=== PATIENT | male | born 1960 | race Caucasian/White ===

== ENCOUNTER → 2019-10-31 12:07 | Outpatient (CLI) | payer OTHER, SELFPAY ==
--- NOTE | 2019-10-31 12:08 | DI.RAD.S_ITS ---
PROCEDURE: XR CERVICAL SPINE 4V OR 5V INDICATIONS: neck pain TECHNIQUE: 5 views of the cervical spine acquired. COMPARISON: None. FINDINGS: Bones: No fractures or dislocations to the superior endplate of T1 level. Oblique images demonstrate mild left greater than right bony neural foraminal narrowing at C6-7. Multilevel cervical spondylitic changes with disc space loss, degenerative endplate changes, and endplate osteophyte formation. Findings are most pronounced from C4-5 through C6-7. Straightening of cervical lordosis which may be due to patient positioning and/or concurrent muscle spasms. Soft tissues: No prevertebral soft tissue swelling. IMPRESSION: Cervical spine without acute radiographic abnormalities. Multilevel cervical spondylosis most pronounced from C4-5 through C6-7. Mild straightening of normal cervical lordosis likely related to positioning and/or concurrent muscle spasms. Dictated by: Kevyn Campuzano M.D. on 10/31/2019 at 16:11 Approved by: Kevyn Campuzano M.D. on 10/31/2019 at 16:13
--- NOTE | 2019-10-31 12:08 | DI.RAD.S_ITS ---
PROCEDURE: XR SHOULDER RT MIN 2V INDICATIONS: scapular pain TECHNIQUE: 3 views of the shoulder were acquired. COMPARISON: None. FINDINGS: Bones: No acute fractures or dislocations. Moderate degenerative changes of the right acromioclavicular joint. Coracoclavicular and acromioclavicular intervals are maintained. No suspicious bony lesions. Visualized ribs appear intact. Soft tissues: No suspicious soft tissue calcifications. IMPRESSION: Right shoulder without acute radiographic abnormalities. 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 Dictated by: Kevyn Campuzano M.D. on 10/31/2019 at 16:08 Approved by: Kevyn Campuzano M.D. on 10/31/2019 at 16:10
== END ==
PROVIDERS: PCP Family Medicine; Referring Provider Family Medicine; Visit Provider Physical Medicine & Rehabilitation
DX: M47.22 Other spondylosis with radiculopathy, cervical region (principal); M89.8X1 Other specified disorders of bone, shoulder
CPT/HCPCS: 72050; 73030

== ENCOUNTER → 2022-10-01 09:47 | Outpatient (CLI) | payer OTHER, SELFPAY ==
--- NOTE | 2022-10-01 09:49 | DI.RAD.S_ITS ---
PROCEDURE: XR LUMBAR SPINE MIN 4V INDICATIONS: BACK PAIN TECHNIQUE: 5 views of the lumbar spine were acquired, including bilateral oblique views. COMPARISON: [facility] Alfonso, CR, XR LUMBAR SPINE WITH OBLIQUES, 05/05/2017, 15:34. FINDINGS: Bones: 5 nonrib-bearing vertebrae are present. There is normal bony alignment. No vertebral body compression fractures. Multilevel vertebral body osteophytes and mild disc space height loss. Progressed compared to 2018, slightly progressed compared to 2018. No suspicious bony lesions. Soft tissues: Overlying bowel gas pattern is normal. No suspicious soft tissue calcifications. Oblique images: No pars defects. IMPRESSION: [id number] multilevel DDD. Dictated by: Hector Pedraza M.D. on 10/01/2022 at 11:09 Approved by: Hector Pedraza M.D. on 10/01/2022 at 11:13
== END ==
PROVIDERS: PCP Family Medicine; Referring Provider Physical Medicine & Rehabilitation; Visit Provider Physical Medicine & Rehabilitation
DX: M47.26 Other spondylosis with radiculopathy, lumbar region (principal); M47.27 Other spondylosis with radiculopathy, lumbosacral region; M51.16 Intervertebral disc disorders with radiculopathy, lumbar region; N50.811 Right testicular pain; M54.12 Radiculopathy, cervical region; M18.12 Unilateral primary osteoarthritis of first carpometacarpal joint, left hand; K46.9 Unspecified abdominal hernia without obstruction or gangrene
CPT/HCPCS: 72110; 99214

== ENCOUNTER → 2023-01-10 11:19 | Outpatient (CLI) | payer OTHER, SELFPAY ==
--- NOTE | 2023-01-10 11:20 | DI.US.S_ITS ---
PROCEDURE: US SCROTUM INDICATIONS: Right Testicular pain TECHNIQUE: Real-time scanning was performed of the scrotum and testicles, with image documentation. Color and pulse Doppler interrogation was performed of both testicles. COMPARISON: None. FINDINGS: Right: Testicle is normal in size at 4.7 x 2.1 x 3.2 cm, and homogenous in echotexture. Epididymis is normal in overall size and morphology. No hydrocele or varicoceles. Overlying scrotal skin is normal in thickness. Left: Testicle is normal in size at 4.7 x 2.1 x 3.0 cm, and homogeneous in echotexture. Epididymis is normal in overall size and morphology. No hydrocele or varicoceles. Overlying scrotal skin is normal in thickness. Doppler: Color and pulse Doppler demonstrate normal and symmetric arterial flow in both testicles. IMPRESSION: Unremarkable scrotal ultrasound. No testicular torsion, testicular mass, orchitis, or epididymitis. Dictated by: Ac Cesar M.D. on 01/10/2023 at 14:27 Approved by: Ac Cesar M.D. on 01/10/2023 at 14:27
== END ==
PROVIDERS: PCP Family Medicine; Referring Provider Physical Medicine & Rehabilitation; Visit Provider Physical Medicine & Rehabilitation
DX: N50.811 Right testicular pain (principal)
CPT/HCPCS: 76870

== ENCOUNTER → 2023-01-10 12:40 | Outpatient (CLI) | payer OTHER, SELFPAY ==
--- NOTE | 2023-01-10 15:04 | DI.MRI.S_ITS ---
PROCEDURE: MR FEMUR RT WO CON INDICATIONS: Right hamstring TECHNIQUE: Noncontrast coronal and sagittal T1 spin echo and STIR; axial T1 spin echo and T2 fast spin echo with fat saturation through the right femur. COMPARISON: None. FINDINGS: Image quality: Excellent. Bones: The visualized bone marrow demonstrates normal signal on all sequences. The overlying cortex appears intact. No fractures lines or intra-osseous lesions. Osteoarthritic changes are noted in right hip and right knee joints. No evidence of avascular necrosis of femoral head. Soft tissues: Tendinosis involving hamstring tendon origins at ischial tuberosity is seen. Low-grade partial-thickness tear involving semimembranosus tendon origin is also likely present. No full-thickness tendon rupture. The scanned muscles demonstrate normal overall bulk and internal signal. No soft tissue mass or drainable fluid collection. IMPRESSION: 1. Finding is consistent with tendinosis involving hamstring tendon origins at ischial tuberosity. Suggestion of low-grade partial-thickness tear involving semimembranosus tendon origin at ischial tuberosity. No full-thickness muscle or tendon rupture. No muscle signal abnormalities. 2. No marrow signal abnormalities. No fracture or dislocation. No evidence of avascular necrosis of femoral head. 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 Dictated by: Nacho Tirado M.D. on 01/11/2023 at 9:47 Approved by: Nacho Tirado M.D. on 01/11/2023 at 9:49
== END ==
PROVIDERS: PCP Family Medicine; Referring Provider Physical Medicine & Rehabilitation; Visit Provider Physical Medicine & Rehabilitation
DX: S76.301A Unspecified injury of muscle, fascia and tendon of the posterior muscle group at thigh level, right thigh, initial encounter (principal); M16.11 Unilateral primary osteoarthritis, right hip; M17.11 Unilateral primary osteoarthritis, right knee; N50.811 Right testicular pain; X58.XXXA Exposure to other specified factors, initial encounter
CPT/HCPCS: 73718; 76870